=== PATIENT | male | born 1945 | race Caucasian/White ===

== ENCOUNTER 2018-07-05 20:20 | Emergency (ER) | payer OTHER ==
[~2018-07-05] VITALS: Ht 165.1 cm; Wt 63.5 kg
== END 2018-07-06 01:55 | disposition home or self-care (01) ==
LOC: ER 20:20
DX: R60.0 Localized edema (principal); L03.116 Cellulitis of left lower limb; R18.8 Other ascites; K74.69 Other cirrhosis of liver; S91.312S Laceration without foreign body, left foot, sequela; W27.8XXS Contact with other nonpowered hand tool, sequela